=== PATIENT | female | born 1950 | race Caucasian/White ===

== ENCOUNTER 2023-04-27 06:39 | Emergency (ER) | payer MEDICARE ==
[2023-04-27] VITALS (11 sets, daily range): BP systolic 136–167; BP diastolic 64–85
[2023-04-27] MEDS ORDERED: ALBUTEROL SULFATE 8 GM INH IN ONE (07:55)
[2023-04-27] MEDS ORDERED: predniSONE 20 MG/TAB PO ONE (07:55)
[2023-04-27] MEDS ORDERED: CHERATUSSIN PO (08:08)
[2023-04-27] MEDS ORDERED: NEBULIZER PO (08:08)
[2023-04-27] MEDS ORDERED: DOXY-CAPS100 MG PO (08:08)
[2023-04-27] MEDS ORDERED: IPRATROPIU0.5 MG/3 M IN (08:08)
[2023-04-27] MEDS ORDERED: PREDNISONE50 MG PO (08:08)
[2023-04-27] MEDS ORDERED: VENTOLIN HFA108 MCG PO (08:10)
== END 2023-04-27 09:23 | disposition home or self-care (01) ==
LOC: ED 06:39
DX: U07.1 COVID-19 (principal); C90.00 Multiple myeloma not having achieved remission; J40 Bronchitis, not specified as acute or chronic; I10 Essential (primary) hypertension; E11.9 Type 2 diabetes mellitus without complications
CPT/HCPCS: A4627

== ENCOUNTER 2023-04-30 17:36 | Emergency (ER) | payer MEDICARE ==
[~2023-04-30] VITALS: Ht 167.6 cm; Wt 67.8 kg
[2023-04-30] VITALS (12 sets, daily range): BP systolic 97–160; BP diastolic 51–68
[~2023-04-30 17:36] MED LIST: CHERATUSSIN PO; DOXY-CAPS100 MG PO; IPRATROPIU0.5 MG/3 M IN; NEBULIZER PO; PREDNISONE50 MG PO; VENTOLIN HFA108 MCG PO
[2023-04-30] MEDS ORDERED: IPRATROPIUM-Albuterol 0.5MG-2.5MG/3 ML NEB ONE (18:00)
[2023-04-30] MEDS ORDERED: guaiFENesin-CODEINE 200-20 MG/10 ML UDC PO ONE (18:00)
[2023-04-30] MEDS ORDERED: LEVOCETIRIZINE D5 MG PO (18:11)
[2023-04-30] MEDS ORDERED: PAXLOVID PO (18:29)
== END 2023-04-30 20:40 | disposition home or self-care (01) ==
LOC: ED 17:36
DX: J30.9 Allergic rhinitis, unspecified (principal); U07.1 COVID-19; I10 Essential (primary) hypertension; E11.9 Type 2 diabetes mellitus without complications; C90.00 Multiple myeloma not having achieved remission